=== PATIENT | male | born 1985 | race Two or more races ===

== ENCOUNTER 2024-12-11 16:04 | Inpatient (IN) | payer MEDICAID, OTHER ==
[~2024-12-11] VITALS: Ht 180.3 cm; Wt 115.2 kg
[2024-12-11] MEDS ORDERED: DOXY-354 PO (17:01)
[2024-12-11] MEDS ORDERED: OLAN10TA74 PO (17:01)
[2024-12-11 17:04] LABS: BASOPHILS % (AUTO) 0.6 % (0.0-2.0); EOSINOPHILS % (AUTO) 0.5 % (1.0-6.0); HEMATOCRIT 35.7 % (41-53); HEMOGLOBIN 10.7 g/dL (13.5-17.5); LYMPHOCYTES # (AUTO) 1.8 K/uL (1.0-4.8); LYMPHOCYTES % (AUTO) 29.3 % (22.0-44.0); MEAN CORPUSCULAR HEMOGLOBIN 20.3 pg (26.0-34.0); MEAN CORPUSCULAR VOLUME 68 fL (80-100); MONOCYTES # (AUTO) 0.6 K/uL (0.1-1.0); MONOCYTES % (AUTO) 10.4 % (2.0-9.0); NEUTROPHILS # (AUTO) 3.6 K/uL (1.8-7.7); NEUTROPHILS % (AUTO) 59.2 % (40.0-70.0); PLATELET COUNT (AUTO) 333 K/uL (150-450); RED BLOOD CELL COUNT(AUTO) 5.26 MIL/uL (4.50-5.90); RED CELL DISTRIBUTION WIDTH 22.1 % (11.5-14.5); WHITE BLOOD COUNT (AUTO) 6.1 K/uL (4.5-11.0)
[2024-12-11 17:13] LABS: ANION GAP 7 mmol/L (8-16); CALCIUM, TOTAL 8.7 mg/dL (8.8-10.5); CARBON DIOXIDE 31 mmol/L (22-29); CHLORIDE 98 mmol/L (98-107); CREATININE 0.94 mg/dL (0.60-1.30); GLOMERULAR FILTR. RATE CALC > 60 mL/min (>60); GLUCOSE,RANDOM 92 mg/dL (70-110); POTASSIUM 3.9 mmol/L (3.5-5.1); SODIUM SERUM 136 mmol/L (136-145); UREA NITROGEN, BLOOD 8 mg/dL (7-18)
[2024-12-11 17:27] LABS: RBC MORPHOLOGY COMMENT ABNORMAL RBC MORPH
[2024-12-11] MEDS: haloperidoL 5 MG TABLET PO PRN (17:50)
[2024-12-11] MEDS: LORazepam 2 MG TABLET PO PRN (17:50)
[2024-12-11 18:32] LABS: COVID AG,FIA SOURCE NASAL SWAB
[2024-12-11 19:13] LABS: SARS-COV2 (COVID) ANTIGEN,FIA Negative (Negative)
[2024-12-11] MEDS: ZOLPIDEM TARTRATE 10 MG TABLET PO PRN (23:37)
[2024-12-12 01:07] VITALS: BP 132/76; PULSE 78; RESP 18; TEMP 97.2; O2SAT 99
[2024-12-12 11:14] VITALS: BP 133/79; PULSE 75; RESP 17; TEMP 97.6; O2SAT 97
[2024-12-12] MEDS ORDERED: LOPERAMIDE HCL 2 MG CAPSULE PO PRN (11:15)
[2024-12-12] MEDS ORDERED: ALBUTEROL SULFATE HFA 90 MCG/PUFF 8 GM INHALER IH PRN (11:15)
[2024-12-12] MEDS ORDERED: ONDANSETRON 4 MG TABLET PO PRN (11:15)
[2024-12-12] MEDS ORDERED: NICOTINE 14 MG/24 HOUR PATCH TD PRN (11:15)
[2024-12-12] MEDS ORDERED: IBUPROFEN 400 MG TABLET PO PRN (11:15)
[2024-12-12] MEDS ORDERED: MAGNESIUM HYDROXIDE SUSPENSION 30 ML UDCUP PO PRN (11:15)
[2024-12-12] MEDS ORDERED: PETROLATUM,WHITE 28 GM JELLY TP PRN (11:15)
[2024-12-12] MEDS ORDERED: CloNIDine HCL 0.1 MG TABLET PO PRN (11:15)
[2024-12-12] MEDS ORDERED: GuaiFENesin/D-METHORPHAN [SUGAR-FREE] 200-20MG/10 ML SYRUP UDCUP PO PRN (11:15)
[2024-12-12] MEDS ORDERED: DOCUSATE SODIUM 100 MG CAPSULE PO PRN (11:15)
[2024-12-12] MEDS ORDERED: MAG HYDROX/ALUMINUM HYD/SIMETH ES 30 ML SUSPENSION UDCUP PO PRN (11:15)
[2024-12-12] MEDS ORDERED: ACETAMINOPHEN 325 MG TABLET PO PRN (11:15)
[2024-12-12] MEDS: OLANZapine 10 MG TABLET PO SCH (20:36)
[2024-12-12 21:49] VITALS: BP 138/75; PULSE 79; RESP 18; TEMP 97.8; O2SAT 100
[2024-12-13 08:28] LABS: CHOL/HDL RATIO 4.1 (4.2-7.3); THYROID STIMULATING HORMONE 2.14 uIU/mL (0.36-3.74)
[2024-12-13 09:29] VITALS: BP 121/81; PULSE 64; RESP 16; TEMP 96.5; O2SAT 98
[2024-12-13 21:13] VITALS: BP 133/73; PULSE 74; RESP 16; TEMP 97.3; O2SAT 99
[2024-12-14 10:07] VITALS: BP 150/56; PULSE 68; RESP 16; TEMP 97.6; O2SAT 100
== END 2024-12-14 18:14 | disposition home or self-care (01) | DRG 751 ==
LOC: EMS 16:04 → UNDOADMIN 12-12 00:10 → 3EC 12-12 00:10
PROVIDERS: ADMIT Psychiatry & Neurology Child & Adolescent Psychiatry; ATTEND Psychiatry & Neurology Child & Adolescent Psychiatry
PROC: GZ56ZZZ Individual Psychotherapy, Supportive (ICD-10-PCS; 2024-12-12)
PROC: GZ52ZZZ Individual Psychotherapy, Cognitive (ICD-10-PCS; principal; 2024-12-14)
DX: F29 Unspecified psychosis not due to a substance or known physiological condition (principal); D64.9 Anemia, unspecified; Z20.822 Contact with and (suspected) exposure to COVID-19; F15.10 Other stimulant abuse, uncomplicated; F41.9 Anxiety disorder, unspecified; G47.00 Insomnia, unspecified; Z79.899 Other long term (current) drug therapy
CPT/HCPCS: 80048; 80061; 83036; 84443; 85025; 99285; G0480